=== PATIENT | male | born 1955 | race Caucasian/White ===

== ENCOUNTER 2017-03-23 08:34 | Inpatient (IN) | payer OTHER ==
[2017-03-02 12:23] VITALS: BMI 29.0
--- NOTE | 2017-03-02 13:01 | PAT Medication Instructions ---
Service Date Mar 02, 2017. Current Home Medication List Glimepiride (Glimepiride), 1 TAB PO QAM Ibuprofen (Advil), 600 MG PO PRN Levothyroxine Sodium (Levothyroxine Sodium), 1 TAB PO QAM Lovastatin (Mevacor), 40 MG PO HS Metoprolol Succ (Toprol Xl) (Toprol-Xl), 25 MG PO BID [Nasal [place]], 2 SPRAYS JASIEL PRN Medication Instructions For Your Scheduled Surgery - Check with surgeon for instructions: Ibuprofen (Advil), 600 MG PO PRN - Hold the following medications the morning of surgery: Glimepiride (Glimepiride), 1 TAB PO QAM - Take the following medications the morning of surgery with a sip of water: [Nasal [place]], 2 SPRAYS JASIEL PRN (if needed) Metoprolol Succ (Toprol Xl) (Toprol-Xl), 25 MG PO BID Levothyroxine Sodium (Levothyroxine Sodium), 1 TAB PO QAM - Take the following medications as scheduled the night before surgery: [Nasal [place]], 2 SPRAYS JASIEL PRN (if needed) Metoprolol Succ (Toprol Xl) (Toprol-Xl), 25 MG PO BID Lovastatin (Mevacor), 40 MG PO HS If you have any questions please call us at [phone] or [phone] or [phone]
--- NOTE | 2017-03-02 13:35 | DIAGNOSTIC IMAGING REPORT ---
CHEST PREADMISSION(PA/LAT) CLINICAL HISTORY: Preoperative chest COMPARISON STUDY: No previous studies for comparison. FINDINGS: The cardiac and mediastinal contours are normal. There is no evidence of focal pulmonary consolidation. There is no evidence of failure. No pleural effusions are visualized.[ IMPRESSION: No active disease in the chest. Electronically signed by: Jeet Duncan M.D. 03/02/2017 1:33 PM Dictated Date/Time: 03/02/2017 1:33 PM
[2017-03-02 14:21] LABS: URINE APPEARANCE CLEAR (CLEAR); URINE BILIRUBIN NEG (NEG); URINE COLOR YELLOW; URINE NITRITE NEG (NEG); URINE PH 5.5 (4.5-7.5); URINE SPECIFIC GRAVITY 1.012 (1.000-1.030); UROBILINOGEN NEG (NEG)
[2017-03-02 14:23] LABS: BASO % 0.2 %; BASO ABS # 0.02 K/uL (0-0.2); COMPLETE YES; EOS % 1.5 %; HEMATOCRIT 46.4 % (42-52); IG% 0.4 %; LYMPH % 30.3 %; LYMPH ABS # 2.87 K/uL (1.2-3.4); MEAN CELL VOLUME 94.1 fL (80-100); MEAN CORPUSCULAR HEMOGLOBIN 31.8 pg (25-34); MEAN CORPUSCULAR HGB CONC 33.8 g/dl (32-36); MONO % 6.6 %; PLATELET COUNT 187 K/uL (130-400); RED BLOOD COUNT 4.93 M/uL (4.7-6.1); WHITE BLOOD COUNT 9.48 K/uL (4.8-10.8)
[2017-03-02 14:27] LABS: MANUAL MICROSCOPIC REQUIRED? NO; REVIEW REQ? NO
[2017-03-02 16:14] LABS: BUN/CREATININE RATIO 11.2 (10-20); CALCIUM 9.5 mg/dl (8.5-10.1); CREATININE 0.99 mg/dl (0.60-1.40); POTASSIUM 4.4 mmol/L (3.5-5.1)
[2017-03-23] VITALS (8 sets, daily range): BP systolic 107–155; BP diastolic 68–92; PULSE 59–92; TEMP 36.5–37.2; O2SAT 92–98; Ht 182.9 cm; Wt 99.2 kg
[~2017-03-23] VITALS: Ht 182.9 cm; Wt 99.2 kg
[~2017-03-23 08:34] MED LIST: CEFAZOLIN 2000 MG/60 ML D5W IV SCH; DEXAMETHASONE SOD INJ 4 MG/ML VIAL ONE; FENTANYL CITRATE INJ 50 MCG/1 ML 2 ML VIAL ONE; GLIM1TAB2 PO; IBUP-1050 PO; LACTATED RINGER'S 1000ML 1,000 ML IV SCH; LEVO25TA5 PO; LIDOCAINE HCL 2% 2 ML VIAL (20MG/ML) ONE; LOVA40TA4 PO; METO50TA7 PO; MIDAZOLAM HCL 1 MG/ML 2ML VIAL ONE; NASAL SPRAY NAE; ONDANSETRON INJ 2 MG/ML 2 ML VIAL ONE; PROPOFOL IV EMULSION 10 MG/ML 20 ML VIAL IV ONE; ROCURONIUM BROMIDE 10 MG/ML 5 ML VIAL IV ONE
--- NOTE | 2017-03-23 10:23 | History & Physical Bridge Note ---
H&P Re-Evaluation Bridge Note: I have examined the patient, reviewed the History & Physical and in the interval since the performance of the History & Physical I have noted the following changes of clinical significance: No changes noted
--- NOTE | 2017-03-23 10:24 | History and Physical ---
History & Physical Date Mar 23, 2017. Chief Complaint Back and leg pain History of Present Illness The patient is a 61 year old male with complaints of back and leg pain Additional History Hepatic Disease: No Endocrine Disorder: No Kidney Disease: No Hypertension: Yes Heart Disease: No Bleeding Tendencies: No Infectious Diseases: No Allergies Coded Allergies: No Known Allergies (Verified , 03/23/17) Home Medications Scheduled Glimepiride (Glimepiride), 1 TAB PO QAM Ibuprofen (Advil), 600 MG PO PRN Levothyroxine Sodium (Levothyroxine Sodium), 1 TAB PO QAM Lovastatin (Mevacor), 40 MG PO HS Metoprolol Succ (Toprol Xl) (Toprol-Xl), 25 MG PO BID [Nasal [place]], 2 SPRAYS JASIEL PRN Physical Examination Skin: warm/dry, no rash Eyes: normal inspection, EOMI, sclerae normal ENT: normal ENT inspection, pharynx normal Head: normocephalic, atraumatic Neck: supple, no adenopathy, trachea midline Respiratory/Chest: lungs clear, normal breath sounds, no respiratory distress Cardiovascular: regular rate, rhythm, no edema, no murmur Abdomen / GI: normal bowel sounds, non tender Back: normal inspection Extremities: normal inspection, normal range of motion Neurologic/Psych: no motor/sensory deficits, alert, normal reflexes, oriented x 3 Diagnosis Lumbar spinal stenosis Plan of Treatment Lumbar decompression and fusion L4 to S1
[2017-03-23] MEDS ORDERED: BUPIVACAINE/EPINEPHRINE 0.5% MPF 1:200,000 30 ML VIAL ONE (10:59)
[2017-03-23] MEDS ORDERED: BACITRACIN 50000 UNIT VIAL ONE (10:59)
[2017-03-23] MEDS ORDERED: FENTANYL CITRATE INJ 50 MCG/1 ML 2 ML VIAL ONE ×2 (11:26→12:25)
[2017-03-23] MEDS ORDERED: GLYCOPYRROLATE INJ 0.2 MG/ML VIAL ONE (11:29)
[2017-03-23] MEDS ORDERED: NEOSTIGMINE METHYLSULFATE 1 MG/ML 10ML VIAL ONE (11:29)
[2017-03-23] MEDS ORDERED: MEPERIDINE HCL 25 MG/ML CARP IV PRN (11:30)
[2017-03-23] MEDS ORDERED: ONDANSETRON INJ 2 MG/ML 2 ML VIAL IV PRN ×2 (11:30→13:15)
[2017-03-23] MEDS ORDERED: EpHEDrine SULFATE INJ 50 MG/ML AMP IV PRN (11:30)
[2017-03-23] MEDS ORDERED: ATROPINE SULFATE 0.1 MG/ML 5ML SYR IV PRN (11:30)
[2017-03-23] MEDS ORDERED: HYDROmorphone INJ 1 MG/ML SYR IV PRN (11:30)
[2017-03-23] MEDS ORDERED: LABETALOL HCL IV 5 MG/ML 20ML IV PRN (11:30)
[2017-03-23] MEDS ORDERED: ROCURONIUM BROMIDE 10 MG/ML 5 ML VIAL IV ONE (11:36)
[2017-03-23] MEDS ORDERED: EpHEDrine SULFATE 50MG/5ML SYR ONE (12:32)
[2017-03-23] MEDS ORDERED: PHENYLEPHRINE 100MCG/ML 5ML SYR ONE (12:32)
[2017-03-23] MEDS ORDERED: FLOSEAL HEMOSTATIC MATRIX 10ML TOP ONE (12:56)
[2017-03-23] MEDS ORDERED: SODIUM CHLORIDE 0.9% 1000ML 1,000 ML IV SCH (13:02)
--- NOTE | 2017-03-23 13:10 | [facility] Operative Report ---
Operative Report Operative Date Mar 23, 2017. Pre-Operative Diagnosis Lumbar spinal stenosis Post-Operative Diagnosis Lumbar spinal stenosis Procedure(s) Performed #1 lumbar decompression medial facetectomies foraminotomies L3 4 L4 5 L5-S1. #2 posterior spinal fusion L4 5 L5-S1. #3 placement of posterior segmental instrumentation L4 5 L5-S1. #4 interbody fusion L4 5 L5-S1. #5 placement of peek Cage 14 x 26 at L45 and 9 x 26 at L5-S1. #6 placement locally harvested morcellized autograft and posterior gutters. #7 placement of ostial amp bone graft in the interbody space and posterior lateral gutters. Surgeon Dr. Dax Sparks Local Hazmat Driver Surgeon(s) Jade Peña PA-C Estimated Blood Loss 200 mL Findings Severe spinal stenosis Specimens No pathology specimens per surgeon Description of Procedure Patient was met with preoperatively case discussed all questions were addressed. After informed consent obtained patient was taken to the operative suite and intubated and placed in a prone position on the Gonzalez table on top of the Brandon frame. All bony prominences were well-padded eyes inspected to ensure no external pressure. This time the lumbar spine was prepped and draped in the normal sterile fashion. Sharp dissection with the assistance of Bovie cautery was performed onto an exposing the lamina and transverse processes of L4 -L5 and sacral alar bilaterally. From a caudal to cephalad fashion complete laminectomy of L5 L4 and partial laminectomy of L3 was performed addressing severe lateral recess and foraminal stenosis. Pedicle screws are then placed in L4-L5 and S1 levels bilaterally with assistance of fluoroscopy the purposes eneida placed. Through a trans-foraminal approach on the right a complete discectomy of L5-S1 was performed and plate created to subcortical bleeding bone and a 9 x 26 mm peek cage filled with ostial amp tapped in position. Then proceeded L4 5 and again through a transforaminal approach on the right complete discectomy performed and plate created to subcortical bleeding bone and a 14 x 26 Annita peek cage filled with ostial amp tapped in position. Rods were then locked and final position bilaterally. The transverse processes of L4 -L5 and sacral alar burred to subcortical bleeding bone. Ostial amp and locally harvested morcellized autograft was placed in the posterior lateral gutters. 15 round WINNIE drain inserted. Incision was then closed with 1 Vicryl in the fascia 2-0 Vicryl subcutaneous tediously 4 Monocryl for final skin closure Steri-Strip sterile dressings placed. Patient we can take PACU stable condition. Please note Jade Gutierrez was present at the entire procedure involved in patient positioning complex portions of the surgery and final skin closure. I attest to the content of the Intraoperative Record and any orders documented therein. Any exceptions are noted below.
[2017-03-23] MEDS ORDERED: ACETAMINOPHEN IV 100 ML IV PRN (13:15)
[2017-03-23] MEDS ORDERED: BISACODYL 10 MG SUPP PR PRN (13:15)
[2017-03-23] MEDS ORDERED: NALOXONE HCL 0.4 MG/1 ML VIAL/CARP IV PRN ×2 (13:15)
[2017-03-23] MEDS ORDERED: SOD PHOSPHATE/SOD BIPHOSPHATE ENEMA 132 ML BTL PR PRN (13:15)
[2017-03-23] MEDS ORDERED: HYDROmorphone INJ 0.5 MG/0.5 ML SYR IV PRN (13:15)
[2017-03-23] MEDS ORDERED: hydrOXYzine HCL 25 MG TAB PO PRN (13:15)
[2017-03-23] MEDS ORDERED: METOCLOPRAMIDE HCL INJ 5 MG/ML 2 ML VIAL IV PRN (13:15)
[2017-03-23] MEDS ORDERED: LORAZEPAM INJ 0.5 MG in SYRINGE 0 ML IV PRN (13:15)
[2017-03-23] MEDS ORDERED: DO NOT ADMINISTER PNEUMOCOCCAL VACCINE PRN ×2 (13:15)
[2017-03-23] MEDS ORDERED: DO NOT ADMINISTER FLU VACCINE PRN ×3 (13:15)
[2017-03-23] MEDS ORDERED: MAGNESIUM HYDROXIDE SUSP 30 ML UDC PO PRN (13:15)
[2017-03-23] MEDS ORDERED: ALUMINUM/MAGNESIUM SUSP 30 ML UDC PO PRN (13:15)
[2017-03-23] MEDS ORDERED: LORAZEPAM 0.5 MG TAB PO PRN (13:15)
[2017-03-23] MEDS ORDERED: PROMETHAZINE HCL INJ 12.5 MG in SODIUM CHLORIDE 0.9% 50ML 50 ML IV PRN (13:15)
[2017-03-23] MEDS ORDERED: FAMOTIDINE 20 MG TAB PO PRN (13:15)
[2017-03-23] MEDS ORDERED: ACETAMINOPHEN 500 MG TAB PO PRN (13:15)
--- NOTE | 2017-03-23 13:18 | DIAGNOSTIC IMAGING REPORT ---
LUMBAR SPINE 2 OR 3 VIEW CLINICAL HISTORY: L4-S1 DECOMP/FUSION COMPARISON STUDY: No previous studies for comparison. Fluoroscopy time: 16.7 seconds. FINDINGS: 2 fluoroscopic images demonstrate L4-L5 and L5-S1 discectomies with interbody spacer placement. There is a posterior decompression. Bilateral pedicle screws at the L4, L5 and S1 levels are noted with interconnecting rods. The hardware is intact. One of the S1 screws may slightly extend through the anterior cortex. IMPRESSION: Postsurgical findings consistent with L4-L5 and L5-S1 discectomies and L4-S1 bilateral pedicle screw fusion with decompression. Electronically signed by: Sergio Aguillon M.D. 03/23/2017 1:16 PM Dictated Date/Time: 03/23/2017 1:15 PM
[2017-03-23] MEDS ORDERED: HYDROmorphone HCL 0.5MG/ML 50 ML CASSETTE ONE (13:20)
[2017-03-23] MEDS: FENTANYL CITRATE INJ 50 MCG/1 ML 2 ML VIAL IV PRN ×2 (13:35→13:44)
--- NOTE | 2017-03-23 14:24 | Anesthesiology Progress Note ---
Anesthesia Post Op Note Date & Time Mar 23, 2017 at 14:24 Vital Signs Pain Intensity: 3 Vital Signs Past 12 Hours Date Time Temp Pulse Resp B/P (MAP) Pulse Ox O2 Delivery O2 Flow Rate FiO2 03/23/17 14:20 110/69 03/23/17 14:18 60 12 03/23/17 14:18 61 12 97 03/23/17 14:16 109/74 03/23/17 14:15 36.2 67 17 109/74 96 Nasal Cannula 4 03/23/17 14:13 60 12 03/23/17 14:13 59 12 97 03/23/17 14:11 124/66 03/23/17 14:08 57 16 03/23/17 14:08 56 16 96 03/23/17 14:05 36.2 54 12 128/71 97 Nasal Cannula 4 03/23/17 14:05 128/71 03/23/17 14:03 55 11 94 03/23/17 14:03 55 11 03/23/17 14:02 53 12 03/23/17 14:02 54 12 95 03/23/17 14:01 124/72 03/23/17 13:57 59 13 03/23/17 13:57 56 13 98 03/23/17 13:56 122/71 03/23/17 13:55 53 12 124/72 97 Nasal Cannula 4 03/23/17 13:52 53 12 03/23/17 13:52 52 12 97 03/23/17 13:50 129/69 03/23/17 13:47 57 16 03/23/17 13:47 57 16 98 03/23/17 13:45 117/72 03/23/17 13:45 61 10 117/72 98 Nasal Cannula 4 03/23/17 13:42 59 14 99 03/23/17 13:42 60 14 03/23/17 13:40 115/71 03/23/17 13:37 65 14 97 03/23/17 13:37 65 14 03/23/17 13:35 61 12 114/72 98 Oxymask 10 03/23/17 13:35 114/72 03/23/17 13:32 63 12 03/23/17 13:32 63 12 99 03/23/17 13:30 128/76 03/23/17 13:27 69 19 03/23/17 13:27 69 19 99 03/23/17 13:25 120/72 03/23/17 13:25 67 18 120/72 98 Oxymask 10 03/23/17 13:22 75 15 03/23/17 13:22 75 15 100 03/23/17 13:20 120/86 03/23/17 13:18 136/83 03/23/17 13:17 161/144 03/23/17 13:17 36.5 82 16 136/83 99 Oxymask 10 03/23/17 08:56 36.5 59 20 155/92 97 Room Air Notes Mental Status: alert / awake / arousable, participated in evaluation Pt Amnestic to Procedure: Yes Nausea / Vomiting: adequately controlled Pain: adequately controlled Airway Patency, RR, SpO2: stable & adequate BP & HR: stable & adequate Hydration State: stable & adequate Anesthetic Complications: no major complications apparent
[2017-03-23] MEDS ORDERED: DiphenhydrAMINE HCL 50 MG/ML VIAL ONE (14:56)
[2017-03-23] MEDS ORDERED: NURSING VERBAL MED ORDER ONE (15:00)
[2017-03-23] MEDS: HYDROmorphone HCL 0.5MG/ML 50 ML CASSETTE IV PRN ×2 (15:32→22:56)
[2017-03-23] MEDS ORDERED: PHARMACY GLYCEMIC MGMT CONSULT PRN (18:45)
[2017-03-23] MEDS ORDERED: GLUCOSE 40% GEL 15 GM TUBE PO PRN (19:00)
[2017-03-23] MEDS ORDERED: GLUCOSE 10 TABS/TUBE PO PRN (19:00)
[2017-03-23] MEDS ORDERED: DEXTROSE 50% 50 ML SYR IV PRN (19:00)
[2017-03-23] MEDS ORDERED: GLUCAGON FOR INJ 1 MG VIAL SQ PRN (19:00)
[2017-03-23] MEDS ORDERED: INSULIN ASPART 100 UNITS/ML 3 ML PEN SC SCH (19:00)
--- NOTE | 2017-03-23 19:04 | Pharmacy Progress Note ---
Glycemic Control Intl Consult Date of Service Mar 23, 2017. Scope Glycemic Pharmacist consulted by Dr Sparks on 03/23/17 for glycemic control and to write orders per [facility] inpatient glycemic control protocol Objective Weight (Kilograms): 99.200 Accuchecks BSG (last 24hrs): Test 03/23/17 08:59 03/23/17 13:25 Bedside Glucose 113 mg/dl (70-99) 117 mg/dl (70-99) Recent Pertinent Medications Outpatient Anti-diabetic Regimen: * Glimepiride 1 mg po qam * A1c unknown Risk Factors for Insulin Resistance: * Steroids: Dexamethasone 8 mg IV pre-op, then 8 mg IV q8h x 3 doses * Recent Surgery: POD #0 s/p L4-S1 decompression with fusion * Diet: T2DM Assessment & Plan ASSESSMENT: * 61 yr old T2DM male s/p lumbar decompression and fusion. * Outpatient control unknown - A1c ordered for tomorrow. Patient has maintained adequate glycemic control without insulin therapy at this point but does have the potential to develop steroid induced hyperglycemia. * Pt is maintained on oral antidiabetic agents as an outpatient. Will hold oral agents for admission and utilize SQ basal bolus insulin regimen which is the recommended regimen for inpatient glycemic control. * Will initiate weight based insulin dosing for insulin jakub patient and titrate based on BSG trends. * ADA & AACE recommend a goal blood sugar range 140-180 mg/dl for the majority of critically ill & non-critically ill patients. However, more stringent targets may be selected in individual cases. Will utilize more stringent goal of 110-140mg/dl based on patient age & comorbidities. Additionally, tighter glycemic control is warranted to facilitate wound/infection healing. PLAN FOR INPATIENT GLYCEMIC CONTROL: * Holding outpatient oral diabetes medications * Lantus SQ tonight per scale * 9 units for BSG 120 mg/dL or less * 18 units for BSG 121 - 200 mg/dL * 25 units for BSG greater than 200 mg/dL * Correctional Insulin with NOVOLOG per scale ACHS * Goal Range: Low 110 mg/dL - High 140 mg/dL * Correction Factor: 25 mg/dL/unit * Nutritional / Prandial insulin per carb ratio of 1 unit per 8 grams CHO consumed * Overnight check with coverage at 00 and 04 * Please note that the plan above was derived based on current level of insulin resistance and hospital stress. These recommendations are appropriate for inpatient admission only. Plan of care upon discharge will need to be reassessed to avoid potential outpatient hypo/hyperglycemia. Thank you.
[2017-03-23] MEDS: LACTATED RINGER'S 1000ML 1,000 ML IV SCH ×2 (19:08→19:09)
[2017-03-23] MEDS: DEXAMETHASONE INJ 6 MG in SYRINGE 0 ML IV SCH (19:08)
[2017-03-23] MEDS: CEFAZOLIN IV 2,000 MG in SYRINGE 0 ML IV SCH (19:26)
[2017-03-23] MEDS ORDERED: COUGH DROP (SUGAR FREE) LOZ 24 LOZ/1 BOX PO PRN (20:45)
[2017-03-23] MEDS ORDERED: LANTUS PER UNIT CHARGE SQ SCH (21:00)
[2017-03-23] MEDS: METOPROLOL SUCC 25MG EXT REL TAB PO SCH (21:43)
[2017-03-23] MEDS: DOCUSATE SODIUM/SENNA 50/8.6MG TAB PO SCH (21:43)
[2017-03-23] MEDS ORDERED: LANTUS PER UNIT CHARGE SQ STA (21:43)
[2017-03-23] MEDS: LOVASTATIN 20 MG TAB PO SCH (21:43)
[2017-03-23] MEDS: INSULIN ASPART 100 UNITS/ML 3 ML PEN SC SCH (21:49)
[2017-03-24] VITALS (7 sets, daily range): BP systolic 116–157; BP diastolic 64–92; PULSE 64–86; TEMP 36.7–37.1; O2SAT 92–97
[2017-03-24] MEDS: INSULIN ASPART 100 UNITS/ML 3 ML PEN SC SCH ×6 (00:10→21:00)
[2017-03-24] MEDS: DEXAMETHASONE INJ 6 MG in SYRINGE 0 ML IV SCH ×2 (01:56→09:58)
[2017-03-24] MEDS: LACTATED RINGER'S 1000ML 1,000 ML IV SCH (01:56)
[2017-03-24] MEDS: CEFAZOLIN IV 2,000 MG in SYRINGE 0 ML IV SCH (04:11)
[2017-03-24] MEDS ORDERED: DC PCA SCH (06:00)
[2017-03-24] MEDS: LEVOTHYROXINE 25 MCG TAB PO SCH (06:05)
[2017-03-24 06:15] LABS: COMPLETE YES; HEMATOCRIT 39.9 % (42-52); IG% 0.4 %; LYMPH % 6.2 %; LYMPH ABS # 1.11 K/uL (1.2-3.4); MEAN CELL VOLUME 94.1 fL (80-100); MEAN CORPUSCULAR HEMOGLOBIN 31.6 pg (25-34); MEAN CORPUSCULAR HGB CONC 33.6 g/dl (32-36); MEAN PLATELET VOLUME 11.6 fL (7.4-10.4); MONO % 2.7 %; NEUT % 90.7 %; PLATELET COUNT 192 K/uL (130-400); RED BLOOD COUNT 4.24 M/uL (4.7-6.1); WHITE BLOOD COUNT 17.79 K/uL (4.8-10.8)
[2017-03-24] MEDS ORDERED: NURSING VERBAL MED ORDER ONE (06:15)
[2017-03-24 06:26] LABS: ESTIMATED AVERAGE GLUCOSE 126 mg/dl; HA1C FLAG Normal (Normal)
[2017-03-24 06:54] LABS: BUN/CREATININE RATIO 14.9 (10-20); CALCIUM 8.3 mg/dl (8.5-10.1); POTASSIUM 4.1 mmol/L (3.5-5.1)
[2017-03-24] MEDS ORDERED: RXC5 PO (07:48)
--- NOTE | 2017-03-24 07:49 | Discharge Instructions ---
Discharge Instructions Date of Service Mar 24, 2017. Admission Reason for Admission: Lumbar Spinal Stenosis Discharge Discharge Diagnosis / Problem: lumbar spinal stenosis Discharge Goals Goal(s): Improve function Activity Recommendations Activity Limitations: per Instructions/Follow-up section . Instructions / Follow-Up Instructions / Follow-Up ACTIVITY RECOMMENDATIONS: SELF CARE INSTRUCTIONS AFTER THORACIC/LUMBAR FUSIONS 1. You may walk to your tolerance. It is good exercise for your legs and back. Expect some back and intermittent leg aches and pains. 2. You may perform "counter-top" level activities (make a sandwich, juanpablo with a project, etc.). 3. No bending or lifting of more than 10 pounds or back twisting of any nature (roll like a log when turning in bed). 4. You may ride in a car for 20-30 minutes at a time. No driving until after your first visit with your doctor. 5. Frequent changes of position and restricting sitting to 30 minutes at a time will help limit the amount of back spasms and stiffness you may experience. 6. You may discontinue the use of ambulatory aids (cane, crutches, etc.) once your strength and confidence allow. 7. You may icing machine operator the shower and let water strike your incision when you arrive home at least once daily. Do not take a tub bath, sit in a hot tub or go into a swimming pool until after your first recheck in the office. SPECIAL CARE INSTRUCTIONS: VERY IMPORTANT TO READ AND REVIEW A. Your surgical incision has been closed with a cosmetic suture under the skin that will dissolve in about 6 weeks. In 14 days, you can use a pair of clean scissors and cut the suture that is left outside of the skin at the ends of your incision. 1. The small skin tapes can be removed 7 days after surgery if they have not fallen off by that point. 2. You may keep the wound open to air as much as possible to promote healing after post-op day number 5 unless told otherwise by your doctor. 3. If you think the wound looks like it is becoming infected (redness or worsening drainage) and/or you are experiencing fever, chill or worsening back pain and muscle spasms, contact the office so that we may evaluate you as soon as possible. B. Complications are uncommon, but please contact us if you have any signs or symptoms of: 1. wound infection (fever higher than 102.5 degrees F, redness, separation of wound, drainage, or increasing pain from the incision) 2. blood clots in legs (pain, swelling, redness and warmth in legs) 3. urinary tract infection (fever higher than 102.5 degrees F, burning upon urination or increased frequency of urination) 4. nerve problems (inability to walk on your toes or heels, numbness, loss of bowel or bladder control) 5. any other symptoms that concern you C. Please call the office at if you have any concerns or questions about your operation or recovery. D. No smoking! Smoking drastically decreases the chance of a solid fusion. E. Do not take any anti-inflammatory medications (Indocin, Advil, Motrin, Aspirin, Naprosyn, etc.) as these may inhibit the chance of a solid fusion. Tylenol is okay to take for pain. MANAGING PAIN AFTER SPINAL SURGERY 1. Narcotic medication is intended for short-term use and will be provided for surgical pain. Surgical pain usually lasts for a period of 4-6 weeks. Narcotic medication includes Percocet, Vicodin, Darvocet, Tylenol #3 or Lortab. 2. Longer-term pain is more appropriately treated with non-narcotic medication such as Tylenol ES. 3. Muscle spasm is not appropriately treated with narcotics. Muscle relaxers such as Soma, Flexeril or Skelaxin can be used along with Tylenol ES. 4. Remember that we all live with some "aches and pains". This is not unusual or uncommon after an injury or as we get older. a. Back pain is expected and may include muscle spasms for 4 to 6 weeks after surgery. The pain should gradually improve. If the pain worsens for no apparent reason, please contact the office. b. Intermittent leg pain may also be experienced and should not be concerned about unless it worsens for no apparent reason. If so, please contact the office. 5. We will provide appropriate medication within the normal guidelines of their prescribed use. We will also be very cautious and aware of potential abuse and extended duration of patients' medication needs. a. Pain medications are for your comfort and to assist with sleep and rest so that the tissue can heal. They are not provided in order to return to normal activity and should not be used through the day. To do so or worsening pain at night can result from ongoing tissue damage and development of tolerance to the prescribed medicine. 6. Please allow 2-3 days to process refills. Prescriptions will not be mailed but must be picked up at the office. FOLLOW UP VISIT: Keep your scheduled follow-up appointment. Any questions, please call the office at . Current Hospital Diet Patient's current hospital diet: Diabetes Type 2 Diet Discharge Diet Recommended Diet: Regular Diet Procedures Procedures Performed: #1 lumbar decompression medial facetectomies foraminotomies L3 4 L4 5 L5-S1. #2 posterior spinal fusion L4 5 L5-S1. #3 placement of posterior segmental instrumentation L4 5 L5-S1. #4 interbody fusion L4 5 L5-S1. #5 placement of peek Cage 14 x 26 at L45 and 9 x 26 at L5-S1. #6 placement locally harvested morcellized autograft and posterior gutters. #7 placement of ostial amp bone graft in the interbody space and posterior lateral gutters. Pending Studies Studies pending at discharge: no Laboratory Results Hemoglobin A1c Test 03/24/17 05:44 Range/Units Estimated Average Glucose 126 mg/dl Hemoglobin A1c 6.0 H 4.5-5.6 % Medical Emergencies . Who to Call and When: Medical Emergencies: If at any time you feel your situation is an emergency, please call 911 immediately. . Non-Emergent Contact Non-Emergency issues call your: Primary Care Provider . "Provider Documentation" section prepared by Dax Sparks. . VTE Core Measure Inpt VTE Proph given/why not?: Parvez Beaulieu, SURESH's
--- NOTE | 2017-03-24 08:44 | Pharmacy Progress Note ---
Glycemic Control Progress Note Date of Service Mar 24, 2017. Scope Glycemic Pharmacist consulted for glycemic control to write orders per [facility] inpatient glycemic control protocol. Objective Accuchecks BSG (last 24hrs): Test 03/23/17 08:59 03/23/17 13:25 03/24/17 05:44 03/24/17 08:02 Bedside Glucose 113 mg/dl (70-99) 117 mg/dl (70-99) 198 mg/dl (70-99) Random Glucose 155 mg/dl (70-99) HbA1c: Test 03/24/17 05:44 Hemoglobin A1c 6.0 % (4.5-5.6) H Recent Pertinent Medications The patient is currently receiving: * Basal insulin: Lantus 18 units SQ x 1 last evening * Correctional Insulin: Novolog Correction per scale ACHS Goal Range: Low 110 mg/dL - High 140 mg/dL Correction Factor: 15 mg/dL/unit * Prandial insulin: Per carb ratio of 1 unit per 5 grams CHO consumed Outpatient Anti-Diabetic Meds glimepiride 1 mg PO daily Assessment & Plan ASSESSMENT: * See progress note from 03/23/17 for more background info, in short: * Pt receiving SQ basal bolus insulin regimen for hyperglycemia secondary to baseline DM (outpatient regimen on hold), POD #1 for lumbar decompression and fusion, and dexamethasone 8 mg IV in surgery and 6 mg IV x 3 doses (last dose today at 10 AM). * Patient is currently receiving an average of 23 units of insulin per day * 23 units of basal insulin * 5 units of prandial/correctional insulin * BSGs ranging 113 - 198 mg/dl over the past 24hrs * Changes needed to insulin regimen: * AM Fasting BSG = 198 mg/dl. This is slightly above goal range for patient based on inpatient targets and co-morbidities. The patient still has one dose of dexamethasone 6 mg IV this morning. Utilized slightly higher than weight based stress of 2 dose this morning. The effects of dexamethasone can be long lasting....therefore, a sliding scale of Lantus will be established for this evening. Suspect that patient will not require Lantus after this evening. * Post-prandial BSGs have not been tested yet. The patient is ordered weight- based stress of 3 correctional insulin. This is appropriate until the effects of dexamethasone start to dissipate. Expect a loosening of parameters tomorrow morning. * Total daily dose = ~20 units. Expect this number to increase as the patient has a diet ordered today. Will monitor and have adjusted appropriately. * Additional notes / comments: glimepiride will not be restarted this hospitalization due to its risk of hypoglycemic episodes in the hospital. PLAN FOR INPATIENT GLYCEMIC CONTROL: * Lantus 20 units SQ x 1 this morning then Lantus 0-17 units SQ this evening ( Lantus 0 units if blood sugar less than 120 mg/dL; Lantus 10 units if blood sugar 120-180 mg/dL; Lantus 15 units if blood sugar greater than 180 mg/dL) * Continuing correction factor of 25 mg/dl/unit * Continuing carb ratio of 1 unit per 8 grams CHO consumed * Continuing goal range of Low 110 mg/dL - High 140 mg/dL RECOMMENDATIONS FOR DISCHARGE: * Patient's HbA1C is well controlled; may continue home regimen Thank you.
[2017-03-24] MEDS ORDERED: GLIMEPIRIDE 2 MG TAB PO SCH (09:00)
[2017-03-24] MEDS ORDERED: INSULIN GLARGINE SOLOSTAR 100 UNITS/ML 3 ML PEN SC SCH ×2 (09:00→21:00)
[2017-03-24] MEDS: METOPROLOL SUCC 25MG EXT REL TAB PO SCH ×2 (09:03→21:21)
[2017-03-24] MEDS ORDERED: KETOROLAC TROMETHAMINE 30 MG/ML VIAL IV PRN (10:30)
--- NOTE | 2017-03-24 12:22 | Progress Note ---
Progress Note Date of Service Mar 24, 2017. Progress Note Patient's back pain was well-controlled leg pain markedly improved. Vital signs stable. WINNIE drain decreasing appropriate. On exam is inflating halls comfortably good strength testing. Assessment status post lumbar depression fusion replant this time we'll continue advance his activity possible discharge home tomorrow
--- NOTE | 2017-03-24 12:42 | Anesthesiology Progress Note ---
Anesthesia Post Op Note Date & Time Mar 24, 2017 at 12:41 Vital Signs Pain Intensity: 0.0 Vital Signs Past 12 Hours Date Time Temp Pulse Resp B/P (MAP) Pulse Ox O2 Delivery O2 Flow Rate FiO2 03/24/17 11:02 37.1 78 16 149/88 (108) 96 Room Air 03/24/17 07:45 Room Air 03/24/17 07:16 36.7 84 16 133/79 (97) 92 Room Air 03/24/17 03:50 37.0 64 16 119/67 (84) 93 Room Air Notes Mental Status: alert / awake / arousable, participated in evaluation Pt Amnestic to Procedure: Yes Nausea / Vomiting: adequately controlled Pain: adequately controlled Airway Patency, RR, SpO2: stable & adequate BP & HR: stable & adequate Hydration State: stable & adequate Anesthetic Complications: no major complications apparent
[2017-03-24] MEDS: LOVASTATIN 20 MG TAB PO SCH (21:18)
[2017-03-24] MEDS: DOCUSATE SODIUM/SENNA 50/8.6MG TAB PO SCH (21:19)
[2017-03-25] MEDS: POLYETHYLENE (MIRALAX) 17 GM PACK PO SCH ×2 (05:28→13:30)
[2017-03-25] MEDS: LEVOTHYROXINE 25 MCG TAB PO SCH (05:28)
[2017-03-25] MEDS: OXYCODONE HCL IR 5 MG TAB (IMMEDIATE RELEASE) PO PRN ×2 (06:05→13:30)
[2017-03-25 07:25] VITALS: BP 147/96; PULSE 63; TEMP 36.5; O2SAT 94
[2017-03-25 08:30] VITALS: O2SAT 94
[2017-03-25] MEDS: INSULIN ASPART 100 UNITS/ML 3 ML PEN SC SCH ×2 (08:57→13:26)
[2017-03-25] MEDS ORDERED: INSULIN GLARGINE SOLOSTAR 100 UNITS/ML 3 ML PEN SC SCH (09:00)
[2017-03-25 09:43] VITALS: BP 126/80; PULSE 56
[2017-03-25] MEDS: METOPROLOL SUCC 25MG EXT REL TAB PO SCH (09:44)
[2017-03-25 09:58] VITALS: BP 126/80; PULSE 56; TEMP 36.5; O2SAT 94
--- NOTE | 2017-03-25 12:22 | Discharge Summary ---
Orthopedic Discharge Summary Admission Date/Reason Mar 23, 2017 at 10:30 Lumbar Spinal Stenosis. Discharge Date/Disposition Mar 25, 2017 Home Diagnosis Principal Diagnosis: Lumbar spinal stenosis Admission Physical Exam As per Admitting History & Physical. Hospital Course Patient underwent lumbar decompression fusion tolerated this well as taken to the orthopedic floor postoperatively. Postoperative day #1 he was up and amatory progressed nicely through postoperative day #2. WINNIE drain decreasing appropriate. Subsequently he was discharged home. Discharge orders and instructions found the chart for further review. Discharge Instructions Please refer to the electronic Patient Visit Report (Discharge Instructions) for additional information.
== END 2017-03-25 15:00 | disposition home or self-care (01) | DRG 460 ==
LOC: C.ACU 08:34 → C.3E 10:30 → ENRESERV 15:11
PROVIDERS: ADMIT Orthopaedic Surgery Orthopaedic Surgery of the Spine; ATTEND Orthopaedic Surgery Orthopaedic Surgery of the Spine
PROC: 0SG00AJ Fusion of Lumbar Vertebral Joint with Interbody Fusion Device, Posterior Approach, Anterior Column, Open Approach (ICD-10-PCS; principal; 2017-03-23 10:45)
PROC: 0SG30AJ Fusion of Lumbosacral Joint with Interbody Fusion Device, Posterior Approach, Anterior Column, Open Approach (ICD-10-PCS; principal; 2017-03-23 10:45)
PROC: 0ST20ZZ Resection of Lumbar Vertebral Disc, Open Approach (ICD-10-PCS; principal; 2017-03-23 10:45)
DX: M48.061 Spinal stenosis, lumbar region without neurogenic claudication (principal); Z79.899 Other long term (current) drug therapy